=== PATIENT | male | born 1975 | race Caucasian/White ===

== ENCOUNTER 2020-03-29 22:59 | Observation (INO) | payer OTHER ==
[~2020-03-29] VITALS: Ht 185.4 cm; Wt 88.0 kg
[2020-03-29 23:08] VITALS: BP 101/53
[2020-03-29] MEDS ORDERED: PRINIVIL10 MG PO (23:19)
[2020-03-29] MEDS ORDERED: PRISTIQ ER25 MG PO (23:20)
[2020-03-29] MEDS ORDERED: PERCOCET 7.5-31 EAC1 PO (23:20)
[2020-03-29 23:53] LABS: ABSOLUTE BASOPHILS 0.1 thou/uL (0.0-0.2); ABSOLUTE EOSINOPHILS 0.1 thou/uL (0.0-0.7); ABSOLUTE LYMPHOCYTES 1.3 thou/uL (0.8-5.3); ABSOLUTE MONOCYTES 0.7 thou/uL (0.0-1.2); ABSOLUTE NEUTROPHILS 11.3 thou/uL (1.6-8.1); BASOPHILS 0.6 %; EOSINOPHILS 0.4 %; HEMATOCRIT 46.2 % (42.0-52.0); HEMOGLOBIN 15.7 gm/dL (14.0-18.0); MCH 32.8 pg (26.0-34.0); MCV 96.5 fL (80.0-100.0); MONOCYTES 5.3 %; MPV 7.4 fl. (7.2-11.1); NUCLEATED RBCS 0 /100WBC; PLATELET COUNT* 275 thou/uL (150-400); POLYS 83.7 %; RBC 4.79 mil/uL (4.50-6.00); RDW-CV 13.1 % (10.5-14.5); WBC 13.5 thou/uL (4.0-11.0)
[2020-03-30 00:01] LABS: CREATININE 1.3 mg/dL (0.6-1.3); POTASSIUM 3.3 mmol/L (3.5-5.1)
[2020-03-30 00:06] LABS: TOTAL BILIRUBIN 0.9 mg/dL (<0.1-1.0); TOTAL PROTEIN 7.7 g/dL (6.4-8.2)
[2020-03-30 01:43] LABS: URINE BILIRUBIN NEGATIVE (Negative); URINE BLOOD NEGATIVE (Negative); URINE CLARITY CLEAR; URINE COLOR YELLOW; URINE GLUCOSE-RANDOM NEGATIVE (Negative); URINE KETONES TRACE (Negative); URINE LEUKOCYTES-REFLEX NEGATIVE (Negative); URINE NITRITE-REFLEX NEGATIVE (Negative); URINE PROTEIN 1+ (Negative); URINE SPECIFIC GRAVITY <= 1.005 (1.005-1.030)
[2020-03-30 06:47] VITALS: BP 107/68
[2020-03-30 08:42] VITALS: BP 118/76
[2020-03-30 12:42] VITALS: BP 121/69
[2020-03-30 13:57] LABS: ABSOLUTE BASOPHILS 0.1 thou/uL (0.0-0.2); ABSOLUTE EOSINOPHILS 0.1 thou/uL (0.0-0.7); ABSOLUTE LYMPHOCYTES 1.3 thou/uL (0.8-5.3); ABSOLUTE MONOCYTES 0.3 thou/uL (0.0-1.2); ABSOLUTE NEUTROPHILS 6.4 thou/uL (1.6-8.1); EOSINOPHILS 1.1 %; HEMATOCRIT 44.8 % (42.0-52.0); HEMOGLOBIN 15.2 gm/dL (14.0-18.0); LYMPHOCYTES 15.3 %; MCH 33.3 pg (26.0-34.0); MCV 97.8 fL (80.0-100.0); MONOCYTES 4.2 %; MPV 7.2 fl. (7.2-11.1); NUCLEATED RBCS 0 /100WBC; PLATELET COUNT* 228 thou/uL (150-400); POLYS 78.4 %; RBC 4.58 mil/uL (4.50-6.00); RDW-CV 13.1 % (10.5-14.5); WBC 8.2 thou/uL (4.0-11.0)
[2020-03-30 14:14] LABS: ALBUMIN 3.7 g/dL (3.4-5.0); CALCIUM 8.5 mg/dL (8.5-10.1); CREATININE 0.9 mg/dL (0.6-1.3); POTASSIUM 4.1 mmol/L (3.5-5.1); TOTAL BILIRUBIN 0.8 mg/dL (<0.1-1.0); TOTAL PROTEIN 7.4 g/dL (6.4-8.2)
[2020-03-30 16:03] VITALS: BP 121/69
[2020-03-30 16:26] VITALS: BP 120/82
--- NOTE | 2020-03-30 16:44 | 2DMMODE ---
[place] [address] 2 D/M-MODE ECHOCARDIOGRAM Name: ADWOA TENA Room: [address] [place]#: [id number] Admission: 03/30/20 Attend Phys: Joselin Cabrera, Discharge: 03/30/20 Date of : 77 Date of Service: 03/30/20 1644 Report #: [id number] THIS REPORT FOR: cc: FAM - No family physician/PCP FAM - No family physician/PCP Barak Fallon MD [facility] ~ APPROVED REPORT Study performed: 03/30/2020 13:53:38 EXAM: Comprehensive 2D, Doppler, and color-flow Echocardiogram Patient Location: Bedside BSA: 2.13 HR: 85 bpm BP: 121/69 mmHg Other Information Study Quality: Good Indications Hypotension 2D Dimensions IVSd: 13.73 (7-11mm) LVOT Diam: 21.60 (18-24mm) LVDd: 37.48 mm PWd: 14.45 (7-11mm) Ascending Ao: 29.49 (22-36mm) LVDs: 25.29 (25-40mm) Aortic Root: 30.11 mm Volumes Left Atrial Volume (Systole) LA ESV Index: 24.50 mL/m2 Aortic Valve AoV Peak Leno.: 1.28 m/s AO Peak Gr.: 6.53 mmHg LVOT Max P.65 mmHg AO Mean Gr.: 3.44 mmHg LVOT Mean P.86 mmHg LVOT Max V: 0.96 m/s AO V2 VTI: 23.64 cm LVOT Mean V: 0.63 m/s DALE (VTI): 2.66 cm2 LVOT V1 VTI: 17.15 cm Mitral Valve E/A Ratio: 1.15 [place] [address] 2 D/M-MODE ECHOCARDIOGRAM Name: ADWOA TENA Room: [address]#: [id number] Admission: 03/30/20 Attend Phys: Joselin Cabrera, Discharge: 03/30/20 Date of : 77 Date of Service: 03/30/20 1644 Report #: [id number] MV Decel. Time: 188.55 ms MV E Max Leno.: 0.60 m/s MV PHT: 54.68 ms MVA (PHT): 4.02 cm2 TDI E/Lateral E': 7.50 E/Medial E': 6.00 Medial E' Leno.: 0.10 m/s Lateral E' Leno.: 0.08 m/s Pulmonary Valve PV Peak Leno.: 1.07 m/s PV Peak Gr.: 4.58 mmHg Tricuspid Valve RAP Estimate: 5.00 mmHg TR Peak Gr.: 27.54 mmHg RVSP: 32.54 mmHg PA Pressure: 32.54 mmHg Left Ventricle The left ventricle is normal size. There is normal LV segmental wall motion. Mild concentric left ventricular hypertrophy. Left ventricular systolic function is normal. The left ventricular ejection fraction is within the normal range. LVEF is 60-65%. Right Ventricle Right ventricle is mildly dilated. The right ventricular systolic function is normal. Atria The left atrium size is normal. The right atrium size is normal. Aortic Valve The aortic valve is normal in structure. No aortic regurgitation is present. There is no aortic valvular stenosis. Mitral Valve The mitral valve is normal in structure. There is no mitral valve regurgitation noted. No evidence of mitral valve stenosis. Tricuspid Valve The tricuspid valve is normal in structure. Trace tricuspid regurgitation. Pulmonic Valve The pulmonary valve is normal in structure. [place] [address] 2 D/M-MODE ECHOCARDIOGRAM Name: ADWOA TENA Room: [address]#: [id number] Admission: 03/30/20 Attend Phys: Joselin Cabrera, Discharge: 03/30/20 Date of : 77 Date of Service: 03/30/20 1644 Report #: [id number] valvular regurgitation. Great Vessels The aortic root is normal in size. IVC is normal in size and collapses >50% with inspiration. Pericardium There is no pericardial effusion. <Conclusion> Mild concentric left ventricular hypertrophy. LVEF is 60-65%. <ELECTRONICALLY SIGNED> By: Barak Fallon MD, FACC 03/30/204 43 43 Barak Fallon MD, FACC /INF
--- NOTE | 2020-03-30 17:20 | EKG ---
[place] [address] ELECTROCARDIOGRAM REPORT Name: ADWOA TENA Room: [address]#: [id number] Admission: 03/30/20 Attend Phys: Joselin Cabrera, Discharge: 03/30/20 Date of : 77 Date of Service: 03/29/20 5811 Report #: [id number] THIS REPORT FOR: //name// [facility] ED Test Date: 2020-03-29 Test Time: 23:51:03 Pat Name: ADWOA TENA Department: Room: [facility] Gender: M Trouble Tracer: MED : 1975 Requested By: Matt Ornelas Order Number: [id number] MD: Barak Fallon Measurements Intervals [place] Rate: 78 P: 30 TN: 177 QRS: -23 QRSD: 96 T: 23 QT: 393 QTc: 448 Interpretive Statements Sinus rhythm Borderline left axis deviation No previous ECG available for comparison Electronically Signed On 03-30-2020 17:20:23 [employer] by Barak Fallon [email or web address] <ELECTRONICALLY SIGNED> By: Barak Fallon MD, [facility] 03/30/20 1720 50 50 Barak Fallon MD, [facility] /EPI
--- NOTE | 2020-03-30 17:28 | CON ---
[address] [address] CONSULTATION Name: ADWOA TENA Room: [address] [place]#: [id number] Admission: 03/30/20 Attend Phys: Joselin Cabrera MD Discharge: 03/30/20 Date of : 77 Report #: [id number] THIS REPORT FOR: //name// cc: FAM - No family physician/PCP FAM - No family physician/PCP ~ DATE OF SERVICE: 03/30/2020 CARDIOLOGY CONSULTATION HISTORY OF PRESENT ILLNESS: The patient is a 44-year-old single white male who I was asked to see in the hospital today after he had a dizzy spell. The patient has no previous history of heart disease. In fact, he used to work as a military pay clerk and had a stress test in the past that showed no evidence of heart disease. He stays very active, running on a regular basis. Recently, he has been under a lot of stress, having been furloughed. He recently moved from [place] and lives with an uncle here in [place]. Yesterday, he worked out on the treadmill. Last night, he had some pain in his back. Then, he became diaphoretic and short of breath. His knees were weak. He lowered himself to the ground. He called paramedics and brought here to [facility] by ambulance. He was noted to be hypotensive. He was given fluids. Today, he felt fine. I was asked to see him for further evaluation and treatment. He denies recent chest pain, shortness of breath, cough or fever. He did vomit last night. No diarrhea, no bleeding. PAST MEDICAL HISTORY: He has had back surgery in the past, bilateral knee surgery, hernia repair, hypertension. No diabetes, no hyperlipidemia. He takes Pristiq for depression. MEDICATIONS: Include lisinopril and Pristiq. ALLERGIES: He has no known drug allergies. FAMILY HISTORY: His brothers had fainting spells in the past. SOCIAL HISTORY: He has never been and lives in [place]. He is furloughed guest services attendant. No smoking or alcohol abuse. No illicit drug use. REVIEW OF SYSTEMS: No history of stroke, asthma, liver disease, kidney disease or cancer. He saw a psychiatrist in the past for depression. No chronic skin condition. PHYSICAL EXAMINATION: GENERAL: Revealed a middle-aged male, appeared in no distress. VITAL SIGNS: Now is 120/70, pulse is 80, he is afebrile. HEENT: He was anicteric. Conjunctivae pink. Mucous membranes moist. NECK: Veins nondistended. No [place] [address] CONSULTATION Name: ADWOA TENA Room: [address]#: [id number] Admission: 03/30/20 Attend Phys: Joselin Cabrera MD Discharge: 03/30/20 Date of : 77 Report #: [id number] NECK: Supple. CHEST: Clear to auscultation. CARDIOVASCULAR: Regular rate without murmur. ABDOMEN: Soft. EXTREMITIES: Had no edema. Posterior tibial pulse 2+ bilaterally. SKIN: Warm and dry. NEUROLOGIC: Nonfocal. LYMPH: No adenopathy. MUSCULOSKELETAL: No joint effusion. LABORATORY DATA: His workup in the Emergency Room included ECG that showed a sinus rhythm, left axis deviation, nonspecific T-wave changes. His workup, he had a CT scan of the chest last night that showed no aortic dissection. He had a carotid Doppler study today that showed no significant stenosis. His lab work, sodium 138, creatinine 0.9. SGOT 53, SGPT 69. His troponins all 0.06. White blood cell count 8.2, hemoglobin 15.2. IMPRESSION AND RECOMMENDATIONS: 1. Back pain. No neurologic deficit. 2. Episode of hypotension and diaphoresis. Suspect vasovagal. I would recommend to avoid dehydration. 3. Hypotension. Suspect vasovagal. I would hold his lisinopril at this time. 4. History of depression. 5. Degenerative joint disease. <ELECTRONICALLY SIGNED> By: Barak Fallon MD, FACC 03/30/20 1728 1515 [id number] Fallon MD, FACC /nt
== END 2020-03-30 16:32 | disposition home or self-care (01) ==
LOC: M.ERS 22:59 → M.TBA-ER 03-30 02:24
PROVIDERS: Emergency Medicine Emergency Medical Services; Internal Medicine; ADMIT Internal Medicine; ATTEND Internal Medicine
DX: I95.9 Hypotension, unspecified (principal); I10 Essential (primary) hypertension; N20.9 Urinary calculus, unspecified; F32.9 Major depressive disorder, single episode, unspecified; M54.9 Dorsalgia, unspecified; M19.90 Unspecified osteoarthritis, unspecified site; Z79.899 Other long term (current) drug therapy; Z20.828 Contact with and (suspected) exposure to other viral communicable diseases